=== PATIENT | female | born 1970 | race Caucasian/White ===

== ENCOUNTER 2019-09-14 07:40 | Outpatient (CLI) | payer OTHER, SELFPAY ==
--- NOTE | ~2019-09-14 | MM_ITS ---
EXAMINATION: MM screening [facility] BI w lisestte HISTORY: Screening mammogram TECHNIQUE: Craniocaudal and mediolateral oblique 3-D tomosynthesis images were obtained and synthetic 2-D images were generated. CAD analysis was submitted and interpreted. COMPARISON: Comparison to multiple prior studies sequentially, with oldest reviewed study dated 03/27. BREAST PARENCHYMAL COMPOSITION: There are scattered areas of fibroglandular density. FINDINGS: There is no evidence of suspicious mass, calcification, or architectural distortion to sugg est malignancy in either breast. There has been no suspicious interval change. IMPRESSION: 1. No mammographic evidence of malignancy. 2. Recommend routine screening mammography in one year. BI-RADS Category 1: Negative Reviewed, dictated and finalized at location A.
== END 2019-09-14 07:41 | disposition home or self-care (01) ==
LOC: ANHIMG 07:42
PROVIDERS: PCP Internal Medicine; Visit Provider Nurse Practitioner
DX: Z12.31 Encounter for screening mammogram for malignant neoplasm of breast (principal)
CPT/HCPCS: 77063; 77067

== ENCOUNTER 2019-12-20 18:14 | Emergency (ER) | payer OTHER, SELFPAY ==
--- NOTE | 2019-12-20 18:19 | ED.GENADULT ---
HPI - General Adult General Chief complaint: Wound/Laceration Stated complaint: left hand finger lac Time Seen by Provider: 12/20/19 18:19 Source: patient Mode of arrival: ambulatory Limitations: no limitations History of Present Illness HPI narrative: 49-year-old female patient presents to the [facility] with complaints of a laceration to the left ring finger while cutting a potato today. Patient states that she did sliced her finger with a kitchen knife. Patient unaware when her last tetanus shot was. Related Data Allergies Allergy/AdvReac Type Severity Reaction Status Date / Time Quinolones Allergy Severe RASH Verified 12/20/19 18:26 Sulfa (Sulfonamide Allergy Severe RASH Verified 12/20/19 18:26 Antibiotics) REACTION moxifloxacin Allergy Unknown Rash Verified 12/20/19 18:26 Penicillins Allergy Unknown RASH Verified 12/20/19 18:26 penicillin V Allergy Unknown Verified 12/20/19 18:26 rofecoxib AdvReac Unknown Hives Verified 12/20/19 18:26 clarithromycn Allergy Mild Dizziness Uncoded 05/20/19 16:52 Review of Systems Review of Systems: Narrative: CONSTITUTIONAL: Denies fever, chills, or sweats. EYES: Denies visual changes, redness, or discharge. ENT: Denies rhinorrhea, congestion, sore throat, or otalgia. CARDIOVASCULAR: Denies chest pain, palpitations, or edema. RESPIRATORY: Denies cough or dyspnea. GASTROINTESTINAL: Denies abdominal pain, nausea, vomiting, or diarrhea. GENITOURINARY: Denies dysuria or hematuria. SKIN: Denies rash or itching. Positive laceration to the left ring finger from knife MUSCULOSKELETAL: Denies back pain, joint pain, or myalgia. NEUROLOGIC: Denies headache, numbness, or weakness. PSYCHIATRIC: Denies anxiety or depression. [facility] Past Medical History Medical History Anxiety Fatty liver Hydradenitis Mild intermittent reactive airway disease Mixed hyperlipidemia Osteoarthritis Restless legs syndrome Family History Family History Father Hypertension Cerebrovascular accident Acute myocardial infarction Mother Family history of malignant neoplasm of breast in first degree relative Social History Social History Smoking status: Never smoker Alcohol intake: current Comments At the time of my signature I agree with nursing past medical history, surgical, social, and family history. There is no relevant family history pertinent to the presenting complaint. Exam Narrative: Exam Narrative: GENERAL: Well-appearing, well-nourished, and in no acute distress. HEAD: Normocephalic, atraumatic. EYES: PERRLA and EOMI. ENT: Nares clear, no rhinorrhea or epistaxis. Mucous membranes moist. NECK: Supple. No lymphadenopathy CHEST: Clear to auscultation. No respiratory distress. HEART: Regular rate and rhythm. No murmur heard. Normal peripheral pulses. ABDOMEN: Soft, nontender, nondistended, normal active bowel sounds. EXTREMITIES: Normal range of motion. No edema. SKIN: Warm, dry, no rash. Patient has approximately 1.5 cm linear laceration noted to the palm side of the distal left ring finger. There is a little bit of oozing blood noted during exam. Patient does have excellent range of motion, good cap refill and denies any numbness or tingling to the fingertip. NEURO: No focal deficits. Alert and oriented x3. Course Vital Signs Vital signs: Vital Signs Temperature 36.1 C L 12/20/19 18:20 Pulse Rate 92 12/20/19 18:20 Respiratory Rate 16 12/20/19 18:20 Blood Pressure 145/81 H 12/20/19 18:20 Pulse Oximetry 99 12/20/19 18:20 Temperature 36.1 C L 12/20/19 18:20 Pulse Rate 92 12/20/19 18:20 Respiratory Rate 16 12/20/19 18:20 Blood Pressure 145/81 H 12/20/19 18:20 Pulse Oximetry 99 12/20/19 18:20 Vital signs reviewed. The patient has been informed that they may have pre-hypertension or Hypertension
[2019-12-20 18:20] VITALS: BP 145/81; PULSE 92; RESP 16; TEMP 36.1; O2SAT 99
[2019-12-20] MEDS: TETANUS,DIPHTHERIA,AC PERTUSSIS ADULT (0.5 ML) BOOSTRIX IM (18:29)
== END 2019-12-20 19:00 | disposition home or self-care (01) ==
PROVIDERS: Emergency Provider Nurse Practitioner Family; PCP Internal Medicine
DX: S61.215A Laceration without foreign body of left ring finger without damage to nail, initial encounter (principal); W26.0XXA Contact with knife, initial encounter; Z23 Encounter for immunization; F41.9 Anxiety disorder, unspecified; K76.0 Fatty (change of) liver, not elsewhere classified; E78.2 Mixed hyperlipidemia; M19.90 Unspecified osteoarthritis, unspecified site; G25.81 Restless legs syndrome
CPT/HCPCS: 12001; 90471; 90715; 99212; G0463

== ENCOUNTER → 2020-03-07 09:58 | Outpatient (CLI) | payer OTHER, SELFPAY ==
--- NOTE | ~2020-03-07 | XR_ITS ---
EXAMINATION: XR knee LT 3V DATE: 03/07/2020 10:14 INDICATION: Left knee pain TECHNIQUE: Three views of the left knee were obtained. COMPARISON: 01/12/2011 FINDINGS: Alignment is normal. No fracture or osteochondral lesion. There is mild tricompartmental os teoarthritis characterized by tiny marginal osteophytes. No joint effusion/synovitis. Soft tissues a re unremarkable. IMPRESSION: 1. No acute osseous abnormality. Reviewed, dictated and finalized at location A. 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
== END ==
PROVIDERS: PCP Internal Medicine; Visit Provider Nurse Practitioner
DX: M25.562 Pain in left knee (principal)
CPT/HCPCS: 73562

== ENCOUNTER → 2020-10-15 09:06 | Outpatient (CLI) | payer OTHER, SELFPAY ==
--- NOTE | ~2020-10-15 | MM_ITS ---
EXAMINATION: MM screening [facility] BI w lissette HISTORY: Screening TECHNIQUE: Craniocaudal and mediolateral oblique 3-D tomosynthesis images were obtained and synthetic 2-D images were generated. CAD analysis was submitted and interpreted. COMPARISON: Comparison to multiple prior studies sequentially, with oldest reviewed study dated 09/02. BREAST PARENCHYMAL COMPOSITION: There are scattered areas of fibroglandular density. FINDINGS: There is no evidence of suspicious mass, calcification, or architectural distortion to sugg est malignancy in either breast. There has been no suspicious interval change. IMPRESSION: 1. No mammographic evidence of malignancy. 2. Recommend routine screening mammography in one year. BI-RADS Category 1: Negative Reviewed, dictated and finalized at location A.
== END ==
PROVIDERS: Visit Provider Nurse Practitioner
DX: Z12.31 Encounter for screening mammogram for malignant neoplasm of breast (principal)
CPT/HCPCS: 77063; 77067

== ENCOUNTER 2020-12-26 02:29 | Day surgery (SDC) | payer OTHER, SELFPAY ==
[2020-12-15 08:34] VITALS: BMI 35.7
[2020-12-26 11:59] VITALS: BP 127/70; PULSE 100; RESP 18; TEMP 35.9; O2SAT 96
[2020-12-26] MEDS: LACTATED RINGERS 1,000 ML 150 ML IV CONT (12:15)
--- NOTE | 2020-12-26 12:42 | WPDANESEPPF ---
Anes - Initial Pre Proc Eval Procedure: Operation Date: 12/26/20 13:00 Proposed Procedures p Colonoscopy - Song Alford MD Date/Time: 12/26/20 12:42 Surgeon: Song Alford MD Pre Op Diagnosis: positive cologuard Patient Data Age: 50 Gender: F Height: 1.57 m Weight: 85.8 kg Last Vital Signs Temp 35.9 C L 12/26/20 11:59 Pulse 100 12/26/20 11:59 Resp 18 12/26/20 11:59 BP 127/70 12/26/20 11:59 Pulse Ox 96 12/26/20 11:59 Allergies Allergy/AdvReac Type Severity Reaction Status Date / Time Quinolones Allergy Severe RASH Verified 12/26/20 11:56 Sulfa (Sulfonamide Allergy Severe RASH Verified 12/26/20 11:56 Antibiotics) REACTION moxifloxacin Allergy Unknown Rash Verified 12/26/20 11:56 Penicillins Allergy Unknown RASH Verified 12/26/20 11:56 penicillin V Allergy Unknown Verified 12/26/20 11:56 clarithromycin AdvReac Mild Dizziness Verified 12/26/20 11:56 rofecoxib AdvReac Unknown Hives Verified 12/26/20 11:56 Home Medications Medication Instructions Recorded Confirmed Type fluticasone propionate 50 1 spray INTRANASAL .prn #15.8 ml 03/16/20 12/26/20 Rx mcg/actuation nasal spray,suspension tizanidine 2 mg tablet See Rx Instructions .ROUTE 06/07/20 12/26/20 Rx .COMPLEX #90 tablet bupropion HCl 300 mg 24 hr tablet, See Rx Instructions .ROUTE 07/25/20 12/26/20 Rx extended release .COMPLEX #90 tablet escitalopram oxalate 20 mg tablet See Rx Instructions .ROUTE 07/25/20 12/26/20 Rx .COMPLEX #90 tablet rosuvastatin 20 mg tablet See Rx Instructions .ROUTE 07/25/20 12/26/20 Rx .COMPLEX #90 tablet diclofenac sodium 75 mg 75 mg PO DAILY #90 tablet 10/07/20 12/26/20 Rx tablet,delayed release alprazolam 0.25 mg tablet 0.25 mg PO DAILY PRN #90 tablet 11/11/20 12/26/20 Rx multivitamin 1 tablet PO DAILY 12/15/20 12/26/20 History omega 6-dqg-xmb-fish oil [Fish Oil] 1 cap PO DAILY 12/15/20 12/26/20 History Patient hx anesthesia problems: none Family hx anesthesia problems: none Results Review: All pre-operative results and documents have been reviewed as part of the pre-operative evaluation. [facility] Past Medical History Medical History Anxiety Fatty liver Hydradenitis Mild intermittent reactive airway disease Mixed hyperlipidemia Osteoarthritis Postmenopausal Restless legs syndrome Screening for breast cancer Screening for osteoporosis Family History Family History Father Hypertension Cerebrovascular accident Acute myocardial infarction Mother Family history of malignant neoplasm of breast in first degree relative Social History Social History Smoking status: Never smoker Alcohol intake: current Living arrangements: with family Spiritual care concerns: No Anes - Eval Final PreProcedure Day of Procedure 12/26/20 12:42 Patient weight: obese Heart: regular rate and rhythm Lungs: clear to auscultation Airway: Mallampati scale class II Neurological: alert and oriented Last oral intake: >/= 8 hours ASA classification: III Emergent: no Anesthetic plan: proceed Anesthesia type and monitoring: general GIVS and standard monitoring Results Review: All pre-operative results and documents have been reviewed as part of the pre-operative evaluation. Informed Consent: The patient's anesthetic plan and its attendant risks and benefits were discussed with the patient/family/POA. Questions were solicited and answers provided to the satisfaction of the patient/family/POA.
--- NOTE | 2020-12-26 13:27 | PM.HPGS ---
History of Present Illness History of Present Illness Consent: Risks, benefits, and alternatives have been discussed and questions answered. Patient agrees to proceed with procedure. Chief complaint: positive cologuard Narrative: Eva Payne is a 50 year old female here for first colonoscopy, + cologuard Review of Systems Constitutional: Constitutional: Denies headache(s) and Denies weakness Eyes: Eyes: Denies blurry vision ENT: Reports Normal hearing present, Denies headache(s) and Denies neck pain Cardiovascular: Cardiovascular: Denies chest pain and Denies dyspnea Respiratory: Respiratory: Denies dyspnea Gastrointestinal: Gastrointestinal: Reports no additional gastrointestinal complaints Genitourinary: Genitourinary: Denies dysuria Musculoskeletal: Musculoskeletal: Denies neck pain Integumentary/Breasts: Skin/Breast: Denies dry skin Neurologic: Reports Normal hearing present, Denies headache(s) and Denies weakness Psychiatric: Psychiatric: Denies anxiety Endocrine: Endocrine: Denies change in body appearance Hematologic/Lymphatic: Hematologic/Lymphatic: Denies easy bleeding Allergic/Immunologic: Allergic/Immunologic: Denies urticaria PMFSH Past Medical History Medical History (Updated 12/26/20 @ 13:27 by Song Alford MD) Anxiety Fatty liver Hydradenitis Mild intermittent reactive airway disease Mixed hyperlipidemia Osteoarthritis Positive colorectal cancer screening using Cologuard test Postmenopausal Restless legs syndrome Screening for breast cancer Screening for osteoporosis Family History Family History Father Hypertension Cerebrovascular accident Acute myocardial infarction Mother Family history of malignant neoplasm of breast in first degree relative Social History Social History Smoking status: Never smoker Alcohol intake: current Living arrangements: with family Spiritual care concerns: No Meds Home Medications and Allergies Home Medications Medication Instructions Recorded Confirmed Type fluticasone propionate 50 1 spray INTRANASAL .prn #15.8 ml 03/16/20 12/26/20 Rx mcg/actuation nasal spray,suspension tizanidine 2 mg tablet See Rx Instructions .ROUTE 06/07/20 12/26/20 Rx .COMPLEX #90 tablet bupropion HCl 300 mg 24 hr tablet, See Rx Instructions .ROUTE 07/25/20 12/26/20 Rx extended release .COMPLEX #90 tablet escitalopram oxalate 20 mg tablet See Rx Instructions .ROUTE 07/25/20 12/26/20 Rx .COMPLEX #90 tablet rosuvastatin 20 mg tablet See Rx Instructions .ROUTE 07/25/20 12/26/20 Rx .COMPLEX #90 tablet diclofenac sodium 75 mg 75 mg PO DAILY #90 tablet 10/07/20 12/26/20 Rx tablet,delayed release alprazolam 0.25 mg tablet 0.25 mg PO DAILY PRN #90 tablet 11/11/20 12/26/20 Rx multivitamin 1 tablet PO DAILY 12/15/20 12/26/20 History omega 1-pem-zgi-fish oil [Fish Oil] 1 cap PO DAILY 12/15/20 12/26/20 History Allergies Allergy/AdvReac Type Severity Reaction Status Date / Time Quinolones Allergy Severe RASH Verified 12/26/20 11:56 Sulfa (Sulfonamide Allergy Severe RASH Verified 12/26/20 11:56 Antibiotics) REACTION moxifloxacin Allergy Unknown Rash Verified 12/26/20 11:56 Penicillins Allergy Unknown RASH Verified 12/26/20 11:56 penicillin V Allergy Unknown Verified 12/26/20 11:56 clarithromycin AdvReac Mild Dizziness Verified 12/26/20 11:56 rofecoxib AdvReac Unknown Hives Verified 12/26/20 11:56 Vital Signs Vital Signs - 24 hr 12/26/20 11:59 Temperature 96.7 F L Pulse Rate 100 Respiratory Rate 18 Blood Pressure 127/70 Pulse Oximetry 96 Exam Const: General: comfortable and no acute distress HENMT: General nose exam: Normal nares present Eyes: General: appearance normal, both eyes and all related structures Neck: Neck: no JVD Resp: Auscultation: clear to auscultation bilaterally
[2020-12-26 13:50] VITALS: BP 84/67; PULSE 92; RESP 20; O2SAT 100
[2020-12-26 14:00] VITALS: BP 103/51; PULSE 78; RESP 16; O2SAT 100
[2020-12-26 14:10] VITALS: BP 114/60; PULSE 76; RESP 18; O2SAT 99
== END 2020-12-26 14:20 | disposition home or self-care (01) ==
PROVIDERS: PCP Internal Medicine; Visit Provider Internal Medicine Gastroenterology
PROC: 0DJD8ZZ Inspection of Lower Intestinal Tract, Via Natural or Artificial Opening Endoscopic (ICD-10-PCS; CPT 45378; principal; 2020-12-26 13:00)
DX: R19.5 Other fecal abnormalities (principal); K57.30 Diverticulosis of large intestine without perforation or abscess without bleeding; K64.8 Other hemorrhoids; F41.9 Anxiety disorder, unspecified; K76.0 Fatty (change of) liver, not elsewhere classified; L73.2 Hidradenitis suppurativa; E78.2 Mixed hyperlipidemia; Z78.0 Asymptomatic menopausal state; G25.81 Restless legs syndrome; E66.9 Obesity, unspecified; Z68.34 Body mass index [BMI] 34.0-34.9, adult; M19.90 Unspecified osteoarthritis, unspecified site
CPT/HCPCS: 45378; J2001; J2704; J7120

== ENCOUNTER 2021-06-13 16:50 | Outpatient (CLI) | payer OTHER, SELFPAY ==
--- NOTE | ~2021-06-13 | DEXA_ITS ---
Bone Density Report Name: LAVERN MEDRANO Age: 50 Sex: Female Ethnicity: White Date of : 1970 Indication: postmenopausal; Referring Provider: Nel Kimbrough Study: Bone densitometry was performed. Exam Date: June 13, 2021 Accession number: [id number] Bone Density: Region BMD T-score Z-score Classification AP Spine (L1-L4) 1.256 1.9 2.7 Normal Femoral Neck (Left) 0.897 0.4 1.2 Normal Total Hip (Left) 1.023 0.7 1.2 Normal Total Hip Bilateral Avg 1.010 0.6 1.0 Normal Femoral Neck (Right) 0.857 0.1 0.9 Normal Total Hip (Right) 0.996 0.4 0.9 Normal World Health Organization criteria for BMD impression classify patients as: Normal (T-score at or above -1.0), Osteopenia (T-score between -1.0 and -2.5), or Osteoporosis (T-score at or below -2.5). 10-year Fracture Risk: FRAX not reported because: All T-scores for Spine Total, Hip Total, Femoral Neck at or above -1.0 Clinical Information Provided by Patient: Has used the following medications: Vitamin D Patient maximum height was 62 Drinks caffeinated beverages Onset of menses at age 13 Number of children 2 Impression: The patient has normal bone mass. Discussion: BONE DENSITY IS ABOVE THE MINIMUM DESIRABLE LEVEL AT ALL SKELETAL SITES TESTED. This patient?s bone mineral density is above the minimum desirable level (T-score -1.0 or better) at all sites measured. The patient should follow a healthful lifestyle (good nutrition with adequate calcium and vitamin D, and appropriate weight-bearing exercise). Follow-Up: Consider repeating this study in 5 years or sooner if there is some new clinical indication. Reported by: [facility] on 06/13/2021 5:15:00 PM. Reviewed, dictated and finalized at location APat HODGE
== END 2021-06-13 16:51 | disposition home or self-care (01) ==
PROVIDERS: PCP Internal Medicine; Visit Provider Nurse Practitioner
DX: Z78.0 Asymptomatic menopausal state (principal); Z13.820 Encounter for screening for osteoporosis
CPT/HCPCS: 77080

== ENCOUNTER 2021-08-30 09:28 | Emergency (ER) | payer OTHER, SELFPAY ==
--- NOTE | ~2021-08-30 | XR_ITS ---
EXAMINATION: XR chest 2V DATE: 08/30/2021 10:48 INDICATION: Dizziness. TECHNIQUE: Frontal and lateral views of the chest were obtained. COMPARISON: Chest 2 views 12/14/2014 FINDINGS: The chest demonstrates clear lungs without pneumonia, pleural effusion, or pneumothorax. Th e heart size is normal. IMPRESSION: 1. No acute cardiopulmonary disease. Reviewed, dictated and finalized at location B.
--- NOTE | ~2021-08-30 | CT_ITS ---
EXAMINATION: CT brain wo con DATE: 08/30/2021 10:12 INDICATION: Dizziness. Disorientation. TECHNIQUE: Computed tomography (CT) of the head was performed without intravenous contrast. The mA wa s adjusted according to patient size. Iterative reconstruction technique was employed. The dose-lengt h product was 605.33 mGy-cm. COMPARISON: Head CT 12/13/2011 FINDINGS: There is no intracranial hemorrhage, acute infarction, or abnormal intracranial mass lesion . The ventricles are normal in size. The paranasal sinuses are clear. The orbits are normal. The mast oid air cells are normal. IMPRESSION: 1. Normal brain. Reviewed, dictated and finalized at location B. IMPRESSION: 1. Normal brain.
[2021-08-30 09:35] VITALS: BP 146/75; PULSE 87; RESP 18; TEMP 36.8; O2SAT 99
[2021-08-30 09:35] LABS: Glucose Point of Care 98 mg/dl (65-105)
--- NOTE | 2021-08-30 09:41 | ECG_ITS ---
Measurements Intervals [place] Rate: 78 P: 40 NE: 133 QRS: 66 QRSD: 93 T: 28 QT: 351 QTc: 401 Interpretive Statements SINUS RHYTHM NONSPECIFIC ST ABNORMALITY ABNORMAL ECG NO PREVIOUS ECG AVAILABLE FOR COMPARISON Electronically Signed On 08-30-2021 10:34:10 CDT by Lopez Morris M.D.
[2021-08-30 09:45] VITALS: BP 146/75; PULSE 83; RESP 17
[2021-08-30 10:01] LABS: Basophils Percent Auto 0.5 % (0.2-1.2); Eosinophils Absolute Auto 0.1 K/mm3 (0-0.3); Hematocrit 41.9 % (37.0-47.0); Hemoglobin 13.5 g/dL (12.0-15.0); Immature Granulocyte Absolute 0.01 K/mm3 (0.00-0.031); Immature Granulocyte Percent A 0.1 % (0-0.5); Lymphocytes Absolute Auto 1.67 K/mm3 (0.9-3.2); Lymphocytes Percent Auto 21.5 % (18.3-44.2); Mean Corpuscular HGB Conc 32.2 g/dl (32-36); Mean Corpuscular Hemoglobin 30.1 pg (26-34); Mean Corpuscular Volume 93.5 fl (80-100); Mean Platelet Volume 8.9 fl (7.4-10.4); Monocytes Absolute Auto 0.6 K/mm3 (0.1-0.6); Monocytes Percent Auto 7.2 % (2.6-8.5); Neutrophils Absolute Auto 5.4 K/mm3 (1.3-6.7); Neutrophils Percent Auto 69.7 % (45.5-73.1); Platelet Count Result 335 k/mm3 (150-375); Red Blood Count 4.48 M/mm3 (4.2-5.4); Red Cell Distribution Width 13.4 % (11.5-14.5); White Blood Count 7.8 K/mm3 (4.5-10.0)
--- NOTE | 2021-08-30 10:13 | ED.NEUROSD ---
HPI - Neuro Symptoms/Deficit General Chief Complaint: Suspected CVA Stated Complaint: dizzy, near syncope Time Seen by Provider: 08/30/21 09:49 Source: patient History of Present Illness HPI Narrative: Patient presents with dizziness. Patient reports today while at work she had a out of body experience . It is associated with her knees buckling as well as paresthesias to her left arm. She also reports she put her keys in her looks box and seemed confused as she could not find the light switch. Episode lasted several minutes and then resolved without intervention. Patient reports a history of this where she is previously been evaluated at [facility] is followed up with primary care doctor. Ports were present been negative thus far and she has follow-up with her primary care doctor in 2 weeks discuss further evaluation of her symptoms. Today's episode was more severe than prior so she came the ER for further evaluation. Patient now feels recovered. She denies any chest pain shortness of breath nausea vomiting or diarrhea. She denies any current lightheadedness or dizziness she denies any headache changes in vision or focal numbness or weakness currently. Related Data Home Medications Medication Instructions Recorded Confirmed multivitamin 1 tablet PO DAILY 12/15/20 03/06/21 omega 6-ixz-vpd-fish oil 1,000 mg 1 cap PO DAILY 12/15/20 03/06/21 (120 mg-180 mg) capsule (Fish Oil) cholecalciferol (vitamin D3) 50 50 mcg PO DAILY 04/10/21 mcg (2,000 unit) capsule Allergies Allergy/AdvReac Type Severity Reaction Status Date / Time Quinolones Allergy Severe RASH Verified 08/30/21 09:42 Sulfa (Sulfonamide Allergy Severe RASH Verified 08/30/21 09:42 Antibiotics) REACTION moxifloxacin Allergy Unknown Rash Verified 08/30/21 09:42 Penicillins Allergy Unknown RASH Verified 08/30/21 09:42 penicillin V Allergy Unknown Verified 08/30/21 09:42 clarithromycin AdvReac Mild Dizziness Verified 08/30/21 09:42 rofecoxib AdvReac Unknown Hives Verified 08/30/21 09:42 Review of Systems Review of Systems: CONSTITUTIONAL: Denies fever, chills, or sweats. EYES: Denies visual changes, redness, or discharge. ENT: Denies rhinorrhea, congestion, sore throat, or otalgia. CARDIOVASCULAR: Denies chest pain, palpitations, or edema. RESPIRATORY: Denies cough or dyspnea. GASTROINTESTINAL: Denies abdominal pain, nausea, vomiting, or diarrhea. GENITOURINARY: Denies dysuria or hematuria. SKIN: Denies rash or itching. MUSCULOSKELETAL: Denies back pain, joint pain, or myalgia. NEUROLOGIC: Denies headache, or weakness. PSYCHIATRIC: Denies anxiety or depression. All systems reviewed & are unremarkable except as noted in HPI and below PMFSH Past Medical History Medical History Anxiety Fatty liver Hydradenitis Mild intermittent reactive airway disease Mixed hyperlipidemia Osteoarthritis Positive colorectal cancer screening using Cologuard test Postmenopausal Restless legs syndrome Screening for breast cancer Screening for osteoporosis Family History Family History Father Hypertension Cerebrovascular accident Acute myocardial infarction Mother Family history of malignant neoplasm of breast in first degree relative Social History Social History Smoking status: Never smoker Second hand tobacco smoke exposure: No Alcohol intake: current Substance use: never Substance use type: does not use Spiritual care concerns: No Exam Narrative: GENERAL: Well-appearing, well-nourished, and in no acute distress. HEAD: Normocephalic, atraumatic. EYES: PERRLA and EOMI. ENT: Nares clear, no rhinorrhea or epistaxis. Mucous membranes moist. NECK: Supple. No masses. No JVD CHEST: Clear to auscultation. No respiratory distress. No wheezes rales or rhonchi HEART: Regular rate and
[2021-08-30 10:15] LABS: Alanine Aminotransferase 24 U/L (6-35); Albumin Level 4.6 g/dL (3.5-5.1); Alkaline Phosphatase 30 U/L (38-126); Anion Gap 7 mmol/L (8-16); Aspartate Amino Transferase 37 U/L (14-36); Bilirubin,Total 0.4 mg/dL (0.2-1.3); Blood Urea Nitrogen 14 mg/dL (7-17); Calcium 9.2 mg/dL (8.4-10.2); Carbon Dioxide 27 mmol/L (22-30); Chloride 105 mmol/L (98-107); Estimated Glomerular Filt Rate > 60; Glucose 89 mg/dL (65-110); Potassium 4.3 mmol/L (3.4-5.0); Prothrombin Time 12.5 Seconds (11.1-14.7); Sodium 139 mmol/L (137-145)
[2021-08-30 10:16] LABS: Partial Thromboplastin Time 27.5 SECONDS (22.3-36.8)
[2021-08-30 10:20] VITALS: BP 135/71; PULSE 79; RESP 15; O2SAT 95
[2021-08-30 10:32] LABS: Troponin I < 0.012 ng/mL (0.000-0.034)
[2021-08-30 11:43] VITALS: BP 128/74; PULSE 85; RESP 16; O2SAT 99
== END 2021-08-30 11:44 | disposition home or self-care (01) ==
PROVIDERS: Emergency Provider Emergency Medicine; PCP Internal Medicine
DX: R41.82 Altered mental status, unspecified (principal); R42 Dizziness and giddiness; F41.9 Anxiety disorder, unspecified; E78.5 Hyperlipidemia, unspecified; M19.90 Unspecified osteoarthritis, unspecified site
CPT/HCPCS: 36415; 70450; 71046; 80053; 82948; 84484; 85025; 85610; 85730; 93005; 99284

== ENCOUNTER 2021-10-17 08:28 | Outpatient (CLI) | payer OTHER, SELFPAY ==
--- NOTE | 2021-10-17 08:32 | EST_ITS ---
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 Summary 1. 1. Negative Juan Manuel exercise stress test for ischemic ST changes by ECG criteria. 2. 2. Good functional capacity, achieving 10 METs of workload. 3. 3. Hypertensive response to exercise. 4. 4. Appropriate HR response to exercise. 5. 5. Appropriate HR recovery at 1 minute post exercise. 6. 6. Negative stress echocardiogram for ischemia by wall motion analysis. 7. 7. Patient informed of the above results. Stress Echo Findings Left Ventricle Appropriate increase in LV endocardial thickening with systole. Appropriate augmentation of contractility with systole. No wall motion abnormality. Left Ventricle Normal LV systolic function, no wall motion abnormality. Protocol: Juan Manuel Stress ECG Details Stage: REST Duration (min): 1 min : 6 sec Speed (mph): 0.0 Grade (%): 0 HR (bpm): 78 SBP (mmHg): 131 DBP (mmHg): 73 METS: --- Stage: REST Duration (min): 11 min : 27 sec Speed (mph): 0.0 Grade (%): 0 HR (bpm): 89 SBP (mmHg): 131 DBP (mmHg): 73 METS: --- Stage: STAGE 1 Duration (min): 1 min : 0 sec Speed (mph): 1.7 Grade (%): 10 HR (bpm): 114 SBP (mmHg): 131 DBP (mmHg): 73 METS: --- Stage: STAGE 1 Duration (min): 2 min : 0 sec Speed (mph): 1.7 Grade (%): 10 HR (bpm): 125 SBP (mmHg): 131 DBP (mmHg): 73 METS: --- Stage: STAGE 1 Duration (min): 3 min : 0 sec Speed (mph): 1.7 Grade (%): 10 HR (bpm): 133 SBP (mmHg): 186 DBP (mmHg): 81 METS: --- Stage: STAGE 2 Duration (min): 1 min : 0 sec Speed (mph): 2.5 Grade (%): 12 HR (bpm): 138 SBP (mmHg): 186 DBP (mmHg): 81 METS: --- Stage: STAGE 2 Duration (min): 2 min : 0 sec Speed (mph): 2.5 Grade (%): 12 HR (bpm): 143 SBP (mmHg): 223 DBP (mmHg): 70 METS: --- Stage: STAGE 2 Duration (min): 3 min : 0 sec Speed (mph): 2.5 Grade (%): 12 HR (bpm): 148 SBP (mmHg): 223 DBP (mmHg): 70 METS: --- Stage: STAGE 3 Duration (min): 1 min : 0 sec Speed (mph): 3.4 Grade (%): 14 HR (bpm): 156 SBP (mmHg): 223 DBP (mmHg): 70 METS: --- Stage: STAGE 3 Duration (min): 2 min : 0 sec Speed (mph): 3.4 Grade (%): 14 HR (bpm): 159 SBP (mmHg): 130 DBP (mmHg): 47 METS: --- Stage: STAGE 3
--- NOTE | 2021-10-20 15:44 | P.PCNHOL_ITS ---
Holter/Event Monitor Holter/Event Monitor Date of procedure: 10/20/21 Holter/Event Procedure: 48 Hr Holter Monitor Diagnosis: Syncope and collapse Indications: Syncope and collapse Image/Tracing Quality: Acceptable Finding: Underlying rhythm is sinus with an average heart rate of 80 beats per minute minimum 57 beats per minute occurring at 4:36 a.m. and maximum 160 beats per minute occurring 12:47 p.m.. Rare ventricular ectopy with 4 ventricular couplets and 8 isolated premature ventricular contractions. Rare s upraventricular ectopy with a total 27 isolated premature atrial contractions and 4 atrial pairs. No atrial fibrillation, atrial flutter, prolonged pauses or high-grade AV blocks. Six patient's symptom diary entries returned in conjunction with the study. At 6:43 p.m. patient complained of tingling fingers in heartbeat in her ears were of standing up associated with sinus tachycardia heart rate 103 beats per minute without ectopy. At 7:46 p.m. patient made a fluttering while watching television social was sinus rhythm heart rate 80 beats per minute without ectopy. At 6:35 a.m. patient complained of tingling in her arms while riding exercise bike associated sinus tachycardia heart rate 119 beats per minute without ectopy. At 9:24 p.m. patient complained of mild chest pain while working at her desk associated with sinus tachycardia heart rate 101 beats per minute without ectopy. At 9:38 p.m. patient complained of chest pain while lying in bed so she was sinus rhythm heart rate 75 beats per minute without ectopy. At 7:20 a.m. patient complained of episode of arms tingling, dizziness head felt funny slight knee buckling while walking into work associated with sinus rhythm heart rate 75 beats per minute without ectopy. Conclusion: Underlying normal sinus rhythm with rare PVCs and rare PACs no prolonged pauses or high-grade AV blocks. Symptoms correspond to sinus rhythm and sinus tachycardia without ectopy. Clinical correlation advised.
== END 2021-10-17 08:29 | disposition home or self-care (01) ==
PROVIDERS: PCP Internal Medicine; Visit Provider Nurse Practitioner
DX: R07.9 Chest pain, unspecified (principal); R55 Syncope and collapse
CPT/HCPCS: 93225; 93226; 93351

== ENCOUNTER → 2021-10-19 12:52 | Outpatient (CLI) | payer OTHER, SELFPAY ==
--- NOTE | ~2021-10-19 | MR_ITS ---
EXAMINATION: MR brain/brain stem wo/w con DATE: 10/19/2021 13:30 INDICATION: Transient cerebral ischemic attack, unspecified. TECHNIQUE: Magnetic resonance imaging (MRI) of the brain and brainstem was performed without and with 18 mL MultiHance intravenous contrast. COMPARISON: Head CT 08/30/2021 FINDINGS: There is a small focus of increased T2-weighted signal intensity in the right parietal lobe deep white matter, which is normal as an isolated finding. There is no intracranial hemorrhage, acut e infarction, or abnormal intracranial mass lesion. The ventricles are normal in size. The paranasal sinuses are clear. The orbits are normal. The mastoid air cells are normal. IMPRESSION: 1. Normal brain. Reviewed, dictated and finalized at location A. IMPRESSION: 1. Normal brain.
== END ==
PROVIDERS: PCP Internal Medicine; Visit Provider Internal Medicine
DX: G45.9 Transient cerebral ischemic attack, unspecified (principal)
CPT/HCPCS: 70553; A9577

== ENCOUNTER 2022-10-08 12:09 | Outpatient (CLI) | payer OTHER, SELFPAY ==
--- NOTE | ~2022-10-08 | XR_ITS ---
Cervical Spine: AP, lateral, open-mouth views Clinical History: Pain Findings: There is reversal of the normal cervical lordosis. The vertebral bodies and posterior [place] ents appear intact. There is mild degenerative disc narrowing at C5-C6 and C6-C7. Pre-vertebral soft tissues are unremarkable. Impression: Reversal of the normal cervical lordosis with mild degenerative disc change at C5-C6 and C6-C7. Reviewed, dictated and finalized at location . Impression: Reversal of the normal cervical lordosis with mild degenerative disc change at C5-C6 and C6-C7.
== END 2022-10-08 12:10 | disposition home or self-care (01) ==
PROVIDERS: PCP Nurse Practitioner Family; Visit Provider Nurse Practitioner Family
DX: M54.2 Cervicalgia (principal)
CPT/HCPCS: 72040

== ENCOUNTER → 2022-10-11 13:32 | Outpatient (CLI) | payer OTHER, SELFPAY ==
--- NOTE | ~2022-10-11 | MR_ITS ---
EXAMINATION: MR brain/brain stem wo/w con DATE: 10/11/2022 14:10 INDICATION: Transient cerebral ischemic attack. Anesthesia of skin . TECHNIQUE: Magnetic resonance imaging (MRI) of the brain and brainstem was performed without and with 18 mL Multihance intravenous contrast. Sequences included sagittal and axial T1-weighted SE, axial d iffusion-weighted FS SE, axial 3D SWAN, axial T2-weighted FLAIR, and axial T2-weighted FSE. Postcontr ast axial and coronal T1-weighted SE was obtained. Apparent diffusion coefficient (ADC) maps were cre ated. COMPARISON: 10/19/2021 FINDINGS: There are no areas of restricted diffusion to suggest acute infarction. No intracranial hemorrhage or abnormal intracranial mass lesion. There are no intraparenchymal signal abnormalities seen on the ot her pulse sequences. The ventricles are symmetric and normal in size. There are no abnormal extra-axi al fluid collections. Flow voids are seen in the cerebral arteries on the T2-weighted sequences consi stent with their expected patency. Mild mucoperiosteal thickening the bilateral ethmoid sinuses. Visu alized orbits and soft tissues are unremarkable. There are no areas of abnormal enhancement on the po st contrast images. IMPRESSION: 1. Normal brain. Reviewed, dictated and finalized at location A. IMPRESSION: 1. Normal brain.
== END ==
PROVIDERS: PCP Nurse Practitioner Family; Visit Provider Nurse Practitioner Family
DX: R20.0 Anesthesia of skin (principal)
CPT/HCPCS: 70553; A9577

== ENCOUNTER 2022-12-26 08:32 | Outpatient (CLI) | payer OTHER, SELFPAY ==
--- NOTE | ~2022-12-26 | MR_ITS ---
MRA HEAD History: Left V3 numbness Technique: 3D time of flight MRA of the head is performed. Findings: The right and left distal vertebral arteries and the basilar and posterior cerebral arterie s are normal. Right and left distal internal carotid arteries and anterior and middle cerebral arteri es are normal. There is no aneurysm, stenosis, or occlusion. Impression: No occlusion, stenosis, or aneurysm. Reviewed, dictated and finalized at location . Impression: No occlusion, stenosis, or aneurysm.
--- NOTE | ~2022-12-26 | MR_ITS ---
MRI of the brain Clinical History: Numbness, trigeminal neuralgia Technique: Axial and sagittal T1-weighted images were acquired. These were followed by axial T2-weigh aimee, diffusion weighted, gradient, and FLAIR images. Coronal thin cut T1-weighted and T2-weighted mallory ges, and axial thin cut T1-weighted images were performed through the brainstem. Following intravenou s administration of 19 cc MultiHance gadolinium, T1-weighted fat-sat imaging was performed through th e brain in the axial and coronal planes. Thin cut T1 postcontrast images were performed through the b rain seen in the axial and coronal planes. COMPARISON: 10/11/2022 Findings: There is no abnormal signal in the brain parenchyma. No acute infarct, intracranial hemorrh age or mass lesion. Ventricles and subarachnoid spaces are unremarkable. Orbits are unremarkable. Paranasal sinuses and m astoid air cells are clear. Major intracranial flow voids are intact. Sagittal midline structures are intact. Trigeminal nerves are unremarkable. Meckel's cave unremarkable bilaterally. No abnormal postcontrast enhancement. IMPRESSION: Unremarkable exam. Reviewed, dictated and finalized at location M. IMPRESSION: Unremarkable exam.
== END 2022-12-26 08:33 | disposition home or self-care (01) ==
PROVIDERS: PCP Nurse Practitioner Family; Visit Provider Student in an Organized Health Care Education/Training Program
DX: R20.0 Anesthesia of skin (principal)
CPT/HCPCS: 70544; 70553; A9577

== ENCOUNTER 2023-01-16 15:20 | Outpatient (CLI) | payer OTHER, SELFPAY ==
[2023-01-16 15:32] LABS: Basophils Absolute Auto 0.1 K/mm3 (0.0-0.1); Basophils Percent Auto 0.6 % (0.2-1.2); Eosinophils Absolute Auto 0.1 K/mm3 (0-0.3); Eosinophils Percent Auto 1.5 % (0-4.4); Hematocrit 38.8 % (37.0-47.0); Immature Granulocyte Absolute 0.02 K/mm3 (0.00-0.031); Immature Granulocyte Percent A 0.3 % (0-0.5); Lymphocytes Absolute Auto 2.77 K/mm3 (0.9-3.2); Lymphocytes Percent Auto 35.5 % (18.3-44.2); Mean Corpuscular HGB Conc 33.5 g/dl (32-36); Mean Corpuscular Volume 89.6 fl (80-100); Mean Platelet Volume 8.8 fl (7.4-10.4); Monocytes Absolute Auto 0.6 K/mm3 (0.1-0.6); Monocytes Percent Auto 7.3 % (2.6-8.5); Neutrophils Absolute Auto 4.3 K/mm3 (1.3-6.7); Neutrophils Percent Auto 54.8 % (45.5-73.1); Platelet Count Result 314 k/mm3 (150-375); Red Blood Count 4.33 M/mm3 (4.2-5.4); Red Cell Distribution Width 12.8 % (11.5-14.5); White Blood Count 7.8 K/mm3 (4.5-10.0)
[2023-01-16 17:08] LABS: Alanine Aminotransferase 33 U/L (6-35); Albumin Level 4.2 g/dL (3.5-5.1); Alkaline Phosphatase 30 U/L (38-126); Anion Gap 5 mmol/L (8-16); Aspartate Amino Transferase 26 U/L (14-36); Bilirubin,Total 0.4 mg/dL (0.2-1.3); Blood Urea Nitrogen 18 mg/dL (7-17); Calcium 9.6 mg/dL (8.4-10.2); Carbon Dioxide 29 mmol/L (22-30); Chloride 104 mmol/L (98-107); Estimated Glomerular Filt Rate > 60; Glucose 114 mg/dL (65-110); Potassium 3.9 mmol/L (3.4-5.0); Sodium 138 mmol/L (137-145)
[2023-01-19 00:46] LABS: Kappa\\Lambda Light Chains 1.39 (0.26-1.65); Lambda Light Chain 14.2 mg/L (5.7-26.3)
[2023-01-19 10:32] LABS: Albumin 3.9 g/dL (3.8-4.8); Alpha 1 Globulin 0.3 g/dL (0.2-0.3); Alpha 2 Globulin 0.8 g/dL (0.5-0.9); Beta 1 Globulin 0.4 g/dL (0.4-0.6); Protein, Total 6.7 g/dL (6.1-8.1)
== END 2023-01-16 15:21 | disposition home or self-care (01) ==
PROVIDERS: PCP Nurse Practitioner Family; Visit Provider Internal Medicine Hematology & Oncology
DX: D47.2 Monoclonal gammopathy (principal)
CPT/HCPCS: 36415; 80053; 83883; 84155; 84165; 85025

== ENCOUNTER 2023-01-21 15:00 | Outpatient (CLI) | payer OTHER, SELFPAY ==
[2023-01-21 17:20] LABS: Immunoglobulin A 179 mg/dL (70-400); Immunoglobulin G 984 mg/dL (700-1600); Immunoglobulin M 152 mg/dL (40-230)
== END 2023-01-21 15:01 | disposition home or self-care (01) ==
LOC: ANHLAB 15:02
PROVIDERS: PCP Nurse Practitioner Family; Visit Provider Internal Medicine Hematology & Oncology
DX: D47.2 Monoclonal gammopathy (principal)
CPT/HCPCS: 36415; 82784

== ENCOUNTER 2023-07-28 09:56 | Emergency (ER) | payer OTHER, SELFPAY ==
[2023-07-28 10:08] VITALS: BP 159/99; PULSE 87; RESP 18; TEMP 36.2; O2SAT 99
--- NOTE | 2023-07-28 10:09 | ED.GENADULT ---
HPI - General Adult General Chief complaint: Skin/Abscess/Foreign Body Stated complaint: poison Rachel Time Seen by Provider: 07/28/23 10:09 Source: patient, RN notes reviewed and old records reviewed Mode of arrival: ambulatory Limitations: no limitations History of Present Illness HPI narrative: 53-year-old female to [facility] for complaint diffuse rash to bilateral upper and bilateral lower extremities for 4 days. Patient has attempted to treat at home with Benadryl and calamine lotion with little to no relief. Patient endorses potential exposure to poison sumac. Patient denies pertinent medical history. Patient denies cough, shortness of breath, rash on face, oral swelling. Patient clearly uncomfortable an exam room. Patient hypertensive upon arrival. Patient in no acute distress. Respirations even and nonlabored. Related Data Home Medications Medication Instructions Recorded Confirmed multivitamin 1 tablet PO DAILY 12/15/20 04/02/23 omega 5-evx-nss-fish oil 1,000 mg 1 cap PO DAILY 12/15/20 04/02/23 (120 mg-180 mg) capsule (Fish Oil) bupropion HCl 300 mg 24 hr tablet, 300 mg PO QAM 04/02/23 04/02/23 extended release (Wellbutrin XL) buspirone 5 mg tablet 5 mg PO BID 04/02/23 04/02/23 hydroxyzine HCl 25 mg tablet 12.5 mg PO QHS PRN 07/09/23 Allergies Allergy/AdvReac Type Severity Reaction Status Date / Time Quinolones Allergy Severe RASH Verified 07/28/23 10:01 Sulfa (Sulfonamide Allergy Severe RASH Verified 07/28/23 10:01 Antibiotics) REACTION moxifloxacin Allergy Unknown Rash Verified 07/28/23 10:01 Penicillins Allergy Unknown RASH Verified 07/28/23 10:01 penicillin V Allergy Unknown Verified 07/28/23 10:01 clarithromycin AdvReac Mild Dizziness Verified 07/28/23 10:01 rofecoxib AdvReac Unknown Hives Verified 07/28/23 10:01 Review of Systems Review of Systems: All systems reviewed & are unremarkable except as noted in HPI and below Constitutional: Constitutional: Reports no additional constitutional complaints Eyes: Eyes: Reports no additional eye complaints ENT: Reports system reviewed and no additional complaints, except as documented Cardiovascular: Cardiovascular: Reports no additional cardiovascular complaints, Denies chest pain and Denies dyspnea Respiratory: Respiratory: Reports no additional respiratory complaints, Denies cough and Denies dyspnea Musculoskeletal: Musculoskeletal: Reports no additional musculoskeletal complaints Integumentary/Breasts: Skin/Breast: Reports pruritus and Reports rash Neurologic: Reports system reviewed and no additional complaints, except as documented Psychiatric: Psychiatric: Reports no additional psychiatric complaints PMFSH Past Medical History Medical History Anxiety Fatty liver Hydradenitis Major depressive disorder Mild intermittent reactive airway disease Mixed hyperlipidemia Multilevel scoliosis Osteoarthritis Positive colorectal cancer screening using Cologuard test Postmenopausal Restless legs syndrome Screening for breast cancer Screening for osteoporosis Family History Family History Father Hypertension Cerebrovascular accident Acute myocardial infarction Mother Family history of malignant neoplasm of breast in first degree relative Social History Social History (Updated 07/09/23 @ 14:31 by BETO Pablo) Smoking status: Never smoker Second hand tobacco smoke exposure: No Alcohol intake: current Drinks per week: 2 Substance use: current Substance use type: marijuana Other substance usage details: Cannabis gummies occasionally Do You Feel Safe in your Home?: Yes Lack of Transportation: No Lack of Food: Never True Current Housing: I Have Housing Concerned About Future Housing: No Difficulty Paying Gas/Electric Bills: No Difficulty Paying for Meds: No Currently Unemployed:
== END 2023-07-28 10:44 | disposition home or self-care (01) ==
PROVIDERS: Emergency Provider Nurse Practitioner Family
DX: L25.9 Unspecified contact dermatitis, unspecified cause (principal); K76.0 Fatty (change of) liver, not elsewhere classified; E78.2 Mixed hyperlipidemia; M19.90 Unspecified osteoarthritis, unspecified site; G25.81 Restless legs syndrome; F41.9 Anxiety disorder, unspecified
CPT/HCPCS: 99213; G0463

== ENCOUNTER 2024-08-24 08:04 | Emergency (ER) | payer OTHER, SELFPAY ==
--- OUTSIDE RECORDS SUMMARY | 2024-08-24 08:09 | XMS_ITS | Encounter Summary ---
Author Organization [facility] Address [address] [place] [address] Phone Care Team Providers Care Loading Checker Name Role Phone Marv Becerril DO Primary Care Provider [phone] Referral, Self Unavailable Unavailable Patricio Ayers MD Unavailable [phone] Encounter Details Date Type Department Care Team (Latest Contact Info) Description 07/09/2023 Orders Only [facility] Scanning, Provider Social History Tobacco Use Types Packs/Day Years Used Date Smoking Tobacco: Never Smokeless Tobacco: Never Comments No Sex and Gender Information Value Date Recorded Sex Assigned at Not on file Legal Sex Female 3:49 AM EDGE BRUSHER Gender Identity Not on file Sexual Orientation Not on file documented as of this encounter Plan of Treatment Not on file documented as of this encounter Procedures Procedure Name Priority Date/Time Associated Diagnosis Comments SCAN - LABS 07/09/2023 documented in this encounter Results * SCAN - LABS (07/09/2023) us Provider Scanning Final Result documented in this encounter Visit Diagnoses Not on filedocumented in this encounter Care Teams Loading Checker Relationship Specialty Start Date End Date Marv Becerril DO PCP - General 08/24/20 Referral, Self 02/01/23 Patricio Ayers MD [address] [facility] [address] DIV IM [place] [address] Consulting Physician Internal Medicine 02/01/23 documented as of this encounter
--- OUTSIDE RECORDS SUMMARY | 2024-08-24 08:09 | XMS_ITS | Referral Summary ---
Author Organization [facility] Address [address] [place] [address] Care Team Providers Care Hull Molder Name Role Phone Marv Becerril Primary Care Provider [phone] Referral, Self Unavailable Unavailable Patricio Ayers MD Unavailable [phone] Allergies Active Allergy Reactions Criticality Noted Date Comments Moxifloxacin Other (See comments) Low 01/16/2023 Penicillins Sulfa (Sulfonamide Antibiotics) Rash Medium 03/2022 Medications rosuvastatin (CRESTOR) 20 mg tablet Take 1 tablet (20 mg total) by mouth daily Active ALPRAZolam (XANAX) 0.25 mg tablet Take 1 tablet (0.25 mg total) by mouth nightly as needed for anxiety Active diclofenac DR (VOLTAREN) 75 mg EC tablet Take 1 tablet (75 mg total) by mouth 2 (two) times a day Active fish oil-dha-epa 1,200-144-216 mg capsule Take by mouth Active TiZANidine (ZANAFLEX) 2 mg capsule Take 1 capsule (2 mg total) by mouth 3 (three) times a day Active DOCOSAHEXAENOIC ACID ORALIndications :MGUS (monoclonal gammopathy of unknown significance) Take by mouth Active busPIRone (BUSPAR) 5 mg tabletIndicatio ns:MGUS (monoclonal gammopathy of unknown significance) Take 1 tablet (5 mg total) by mouth 3 (three) times a day Active omeprazole (PriLOSEC) 20 mg capsuleIndicati ons:MGUS (monoclonal gammopathy of unknown significance) 12/19/2022 Activ e buPROPion XL (WELLBUTRIN XL) 300 mg 24 hr tabletIndicatio ns:MGUS (monoclonal gammopathy of unknown significance) 12/28/2022 Activ e hydrOXYzine (ATARAX) 25 mg tablet 12/05/2023 Active busPIRone (BUSPAR) 10 mg tablet 1 tablet (10 mg total) 01/26/2024 Active TiZANidine (ZANAFLEX) 4 mg capsule 1 capsule (4 mg total) 01/27/2024 Active Active Problems Problem Noted Date Diagnosed Date MGUS (monoclonal gammopathy of unknown significa nce) 02/20/2023 Breast cancer screening, high risk patient 12/14 Pain in forearm 11/29/2014 Overview (06/22/2016): Pain in forearm Elbow pain 11/29/2014 Overview (06/22/2016): Elbow pain Immunizations Immunization Administration Dates Next Due Influenza, Quadrivalent, Spl it, Preservative Free, Intramuscular 12/15/2014 Moderna SARS-CoV-2 Monovalent Vaccination (12+ Y RS) 04/26/2020,03/29/2020 Social History Tobacco Use Types Packs/Day Years Used Date Smoking Tobacco: Never Smokeless Tobacco: Never Tobacco Cessation:Counseling Given: Not Answered Comments No Sex and Gender Information Value Date Recorded Sex Assigned at Not on file Legal Sex Female 3:49 AM LINE O SCRIBE OPERATOR Gender Identity Not on file Sexual Orientation Not on file Last Filed Vital Signs Vital Sign Reading Time Taken Comments Blood Pressure 120/84 03/06/2024 8:16 AM LINE O SCRIBE OPERATOR Pulse 79 03/06/2024 8:16 AM LINE O SCRIBE OPERATOR Temperature 37.1 C (98.7 F) 03/06/2024 8:16 AM LINE O SCRIBE OPERATOR Respiratory Rate 18 03/06/2024 8:16 AM LINE O SCRIBE OPERATOR Oxygen Saturation 99% 03/06/2024 8:16 AM LINE O SCRIBE OPERATOR Inhaled Oxygen Concentration - - Weight 78.9 kg (174 lb) 03/09/2024 8:29 AM LINE O SCRIBE OPERATOR Height 157.5 cm (5' 2) 03/09/2024 8:29 AM LINE O SCRIBE OPERATOR Body Mass Index 31.83 03/09/2024 8:29 AM LINE O SCRIBE OPERATOR Plan of Treatment Not on file Procedures Procedure Name Priority Date/Time Associated Diagnosis Comments SCREENING MAMMOGRAM BILATERAL W KD Schedule Routine, Read Routine (OP Routine) 03/09/2024 9:08 AM LINE O SCRIBE OPERATOR Breast cancer screening, high risk patient from Last 3 Months or Most Recently Relevant to Health Maintenance Results * Screening Mammogram Bilateral W Kd (03/09/2024 9:08 AM LINE O SCRIBE OPERATOR) Anatomical Region Laterality Modality Breast Bilateral Mammography Narrative 03/09/2024 6:00 PM LINE O SCRIBE OPERATOR Mammogram Technique: Bilateral Digital Breast Tomosynthesis, Bilateral C-view 2D Screening mammogram. Views obtained: bilateral craniocaudal and bilateral mediolateral oblique. Computer Aided Detection was performed. Mammogram Findings: The present examination has been compared to prior imaging studies performed at [facility] on 03/01/2022 and 03/06/2023. The breasts are almost entirely fatty. There is no suspicious abnormality in either breast. There are no significant changes from the prior study. Impression: There is no mammographic evidence of malignancy. Annual screening mammography is recommended. OVERALL FINAL ASSESSMENT: BI-RADS CATEGORY 1: Negative. Procedure Note Shala Gagnon MD - 03/09/2024 Mammogram Technique: Bilateral Digital Breast Tomosynthesis, Bilateral C-view 2D Screening mammogram. Views obtained: bilateral craniocaudal and bilateral mediolateral oblique. Computer Aided Detection was performed. Mammogram Findings: The present examination has been compared to prior imaging studies performed at [facility] on 03/01/2022 and 03/06/2023. The breasts are almost entirely fatty. There is no suspicious abnormality in either breast. There are no significant changes from the prior study. Impression: There is no mammographic evidence of malignancy. Annual screening mammography is recommended. OVERALL FINAL ASSESSMENT: BI-RADS CATEGORY 1: Negative. Bianca Rossi NP IMG MAMMO PROCEDURES Final Result from Last 3 Months or Most Recently Relevant to Health Maintenance Insurance [facility] Address: [address] [address] [place] [address] [facility] Address: [address] [place] [id number] [facility] Address: [facility] [address] [place] [address] Care Teams Hull Molder Relationship Specialty Start Date End Date Marv Becerril DO PCP - General 08/24/20 Referral, Self 02/01/23 Patricio Ayers MD [address] [facility] [address] DIV [place] [address] Consulting Physician Internal Medicine 02/01/23
--- OUTSIDE RECORDS SUMMARY | 2024-08-24 08:09 | XMS_ITS | Clinical Summary ---
Author Organization [facility] Address [address] [place] [address] Care Team Providers Care Railway Station Manager Name Role Phone Marv Becerril Primary Care Provider [phone] Referral, Self Unavailable Unavailable Patricio Ayers MD Unavailable [phone] Allergies Active Allergy Reactions Criticality Noted Date [...] SARS-CoV-2 Monovalent Vaccination (12+ Y RS) 04/26/2020,03/29/2020 Surgical History Surgery Date Site/Laterality Comments DEBRIDEMENT TENNIS ELBOW SECTION 03/18/1996 - 03/17/1997 ABLATION SECTION 03/18/1999 - 03/17/2000 Medical History Medical History Date Comments Hx Other Medical Left lateral ep icondylar release. 16; Comments: SHANTEL 10/10/2015 - Arthritis Anxiety Depression Hyperlipidemia Family History Medical History Relation Name Comments Hyperlipidemia Father Breast cancer Mother Other Other Family history of cancer and hypertension.; Breast cancer Sister 1 Breast cancer Sister 2 Relation Name Status Comments Father Mother Other Sister 1 Sister 2 Social History Tobacco Use Types Packs/Day Years Used Date Smoking Tobacco: Never Smokeless Tobacco: Never Tobacco Cessation:Counseling Given: Not Answered Comments No Sex and Gender Information Value Date Recorded Sex Assigned at Not on file Legal Sex Female 3:49 AM BOILERMAKER ASSEMBLY AND ERECTION Gender Identity Not on file Sexual Orientation Not on file Obstetrics History Last Filed Vital Signs Vital Sign Reading Time Taken Comments Blood Pressure 120/84 03/06/2024 8:16 AM BOILERMAKER ASSEMBLY AND ERECTION Pulse 79 03/06/2024 8:16 AM BOILERMAKER ASSEMBLY AND ERECTION Temperature 37.1 C (98.7 F) 03/06/2024 8:16 AM BOILERMAKER ASSEMBLY AND ERECTION Respiratory Rate 18 03/06/2024 8:16 AM BOILERMAKER ASSEMBLY AND ERECTION Oxygen Saturation 99% 03/06/2024 8:16 AM BOILERMAKER ASSEMBLY AND ERECTION Inhaled Oxygen Concentration - - Weight 78.9 kg (174 lb) 03/09/2024 8:29 AM BOILERMAKER ASSEMBLY AND ERECTION Height 157.5 cm (5' 2) 03/09/2024 8:29 AM BOILERMAKER ASSEMBLY AND ERECTION Body Mass Index 31.83 03/09/2024 8:29 AM BOILERMAKER ASSEMBLY AND ERECTION Plan of Treatment Health Maintenance Due Date Last Done Comments Cervical Cancer Screening 1970 Colon Cancer Screening-Colonoscopy 1970 Depression Screening 1970 Hepatitis C Screening 1970 DTaP/Tdap/Td Vaccine (1 - Tdap) 1981 Hepatitis B Screening 1988 Regular Well Visit/Exam 18-64 1988 Zoster Vaccine (1 of 2) 2020 Covid-19 Vaccine (3 - season) 2023 04/26/2020, 03/29/2020 Influenza Vaccine (Season Ended) 2024 12/15/2014 Breast Cancer Screening-Mammogram 03/09/2025 03/09/2024, 03/06/2023, 03/01/2022, Additional history exists Pneumococcal vaccine <65 Aged Out No longer eligible based on patient's age to complete this topic Procedures Procedure Name Priority Date/Time Associated Diagnosis Comments SCREENING MAMMOGRAM BILATERAL W KD Schedule Routine, Read Routine (OP Routine) 03/09/2024 9:08 AM BOILERMAKER ASSEMBLY AND ERECTION Breast cancer screening, high risk patient from Last 3 Months or Most Recently Relevant to Health Maintenance Results * Screening Mammogram Bilateral W Kd (03/09/2024 9:08 AM BOILERMAKER ASSEMBLY AND ERECTION) Anatomical Region Laterality Modality Breast Bilateral Mammography Narrative 03/09/2024 6:00 PM BOILERMAKER ASSEMBLY AND ERECTION Mammogram Technique: Bilateral Digital Breast Tomosynthesis, Bilateral C-view 2D Screening mammogram. Views obtained: bilateral craniocaudal and bilateral mediolateral oblique. Computer Aided Detection was performed. Mammogram Findings: The present examination has been compared to prior imaging studies performed at [facility] on 03/01/2022 and 03/06/2023. The breasts are [...] compared to prior imaging studies performed at [facility] on 03/01/2022 and 03/06/2023. The breasts are almost entirely fatty. There is no suspicious abnormality in either breast. There are no significant changes from the prior study. Impression: There is no mammographic evidence of malignancy. Annual screening mammography is recommended. OVERALL FINAL ASSESSMENT: BI-RADS CATEGORY 1: Negative. Bianca Rossi DATABASE MARKETING SPECIALIST IMG MAMMO PROCEDURES Final Result from Last 3 Months or Most Recently Relevant to Health Maintenance Insurance [facility]ICE [employer] H[facility]/PPO Address: [facility] [address] [place] [address] [address] [id number] [facility] CHOICE PLUS [facility]/PPO Address: [id number] [place] [address] [facility] H[facility]/PPO Address: [place] [address] Care Teams Railway Station Manager Relationship Specialty Start Date End Date Marv Becerril DO PCP - General 08/24/20 Referral, Self 02/01/23 Patricio Ayers MD [address] [facility] [address] DIV [place] [address] Consulting Physician Internal Medicine 02/01/23
--- OUTSIDE RECORDS SUMMARY | 2024-08-24 08:09 | XMS_ITS | Clinical Summary ---
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 Active busPIRone (BUSPAR) 10 MG Tablet 01/26/2024 Active tiZANidine (ZANAFLEX) 2 MG Capsule Take 2 mg by mouth. Active rosuvastatin (CRESTOR) 20 MG Tablet Take 20 mg by mouth daily. Active diclofenac (VOLTAREN) 75 MG Tablet Delayed Response Take 75 mg by mouth. Active omeprazole (PriLOSEC) 20 MG CAPSULE DELAYED RELEASE 12/16/2023 Active hydrOXYzine (ATARAX) 25 MG Tablet 12/05/2023 Active ALPRAZolam (XANAX) 0.25 MG Tablet Take 0.25 mg by mouth. Active Active Problems No known active problems Immunizations Immunization Administration Dates Next Due Influenza Vaccine, Quadrivalent, PF 12/15/2014 Zoster Vaccine Recombinant 10/16/2023,04/02/2023 Social History Tobacco Use Types Packs/Day Years Used Date Smoking Tobacco: Never Smokeless Tobacco: Never Comments No Sex and Gender Information Value Date Recorded Sex Assigned at Not on file Legal Sex Female 3:03 AM PRODUCTION SORTER Gender Identity Not on file Sexual Orientation Not on file Last Filed Vital Signs Vital Sign Reading Time Taken Comments Blood Pressure 118/74 03/26/2024 8:45 AM PRODUCTION SORTER Pulse 88 02/20/2024 8:56 AM PRODUCTION SORTER Temperature 36.1 C (96.9 F) 02/20/2024 8:56 AM PRODUCTION SORTER Respiratory Rate 16 03/26/2024 8:45 AM PRODUCTION SORTER Oxygen Saturation 98% 02/20/2024 8:56 AM PRODUCTION SORTER Inhaled Oxygen Concentration - - Weight 80.8 kg (178 lb 3.2 oz) 03/26/2024 8:45 A M PRODUCTION SORTER Height 157.5 cm (5' 2) 02/20/2024 8:56 AM PRODUCTION SORTER Body Mass Index 32.59 02/20/2024 8:56 AM PRODUCTION SORTER Plan of Treatment Health Maintenance Due Date Last Done Comments Hepatitis C Virus (HCV) Screening 1970 TdaP Immunization 1970 Hepatitis B Immunization (1 of 3 - 19+ 3-dose series) 1989 Pap Smear 06/19/1991 Cervical Cancer Screening (CCS) 2000 HPV/Cotest 2000 Cologuard 06/19/2015 Colonoscopy 06/19/2015 Colorectal Cancer Screening 06/19/2015 Immunochemical Fecal Occult Blood 06/19/2015 Pneumococcal Immunization (50+ years) (1 of 1 - PCV) 2020 SARS-COV-2 Immunization ( - season) 2023 03/25/2021, 04/26/2020, 03/29/2020 Influenza Immunization (Season Ended) 2024 12/15/2014 Mammogram 03/09/2025 03/09/2024, 08/16, 03/06/2023, Additional history exists Respiratory Syncytial Virus (RSV) Immunization (Adult) (1 - 1-dose 75+ series) 2045 Zoster Immunization Completed 10/16/2023, Human Papillomavirus (HPV) Immunization Aged Out No longer eligible based on patient's age to complete this topic Meningococcal Immunization (ACWY) Aged Out No longer eligible based on patient's age to complete this topic Rotavirus Immunization Aged Out No lo nger eligible based on patient's age to complete this topic Insurance [facility] Care Teams Chemical Treatment Plant Technician Relationship Specialty Start Date End Date Crispin Coppola MD [address] [place] [address] PCP - General 03/20/07 Maico Li PAC [address] [place] [address] Physician Beauty Specialist Physician Beauty Specialist 02/04/24
--- OUTSIDE RECORDS SUMMARY | 2024-08-24 08:09 | XMS_ITS | Clinical Summary ---
Author Organization [facility] Address [address] [place] [address] Care Team Providers Care Skills Trainer Name Role Phone Maico Prajapati MD Primary Care Provider [phone] Allergies Active Allergy Reactions Criticality Noted Date Comments Moxifloxacin Other (See Comments) 01/16/2023 Penicillins Rash Low 01/16/2023 Sulfa (Sulfonamide Antibiotics) Rash Low 03/2022 Medications ALPRAZolam (XANAX) 0.25 mg tablet Take 0.25 mg by mouth. Active buPROPion HCL (WELLBUTRIN XL) 150 mg Extended Release 24 hour tablet Take 150 mg by mouth daily. Active diclofenac sodium (VOLTAREN) 75 mg Tablet, Delayed Release (E.C.) Take 75 mg by mouth 2 times daily. Active DOCOSAHEXAENOIC ACID ORAL Take by mouth. Active rosuvastatin (CRESTOR) 20 mg tablet Take 20 mg by mouth daily. Active tiZANidine (ZANAFLEX) 2 mg Capsule Take 2 mg by mouth. Active busPIRone (BUSPAR) 5 mg tablet Take 5 mg by mouth 3 times daily. Active ergocalciferol, vitamin D2, (VITAMIN D ORAL) Take by mouth. Active Active Problems No known active problems Family History Medical History Relation Name Comments Breast Cancer Brother Heart Disease Father Breast Cancer Mother Breast Cancer Sister 1 Relation Name Status Comments Brother Alive Daughter Alive Father Mother Sister 1 Alive Sister 2 Alive Sister 3 Alive Sister 4 Alive Son Alive Social History Tobacco Use Types Packs/Day Years Used Date Smoking Tobacco: Never Smokeless Tobacco: Never Tobacco Cessation:Counseling Given: Not Answered Alcohol Use Standard Drinks/Week Comments Yes 0 (1 standard drink = 0.6 oz pur e alcohol) Comments Unknown Sex and Gender Information Value Date Recorded Sex Assigned at Not on file Legal Sex Female 3:16 PM CDT Gender Identity Not on file Sexual Orientation Not on file Last Filed Vital Signs Vital Sign Reading Time Taken Comments Blood Pressure 148/93 01/29/2023 1:49 PM SAWMILLING OPERATOR Pulse 81 01/29/2023 1:46 PM SAWMILLING OPERATOR Temperature 35.9 C (96.7 F) 01/29/2023 1:46 PM SAWMILLING OPERATOR Respiratory Rate 10 01/29/2023 1:46 PM SAWMILLING OPERATOR Oxygen Saturation 100% 01/29/2023 1:46 PM SAWMILLING OPERATOR Inhaled Oxygen Concentration - - Weight 95.3 kg (210 lb) 01/29/2023 1:46 PM SAWMILLING OPERATOR Height 157.5 cm (5' 2) 01/16/2023 2:52 PM CDT Body Mass Index 38.41 01/16/2023 2:52 PM CDT Plan of Treatment Health Maintenance Due Date Last Done Comments DTAP/TDAP/TD VACCINES (1 - Tdap) 1989 HEPATITIS B VACCINES (1 of 3 - 19+ 3-dose series) 1989 HPV/Cotest (21-29) 06/19/1991 CERVICAL CANCER SCREENING 2000 HPV/Cotest (30-65) 2000 PAP SMEAR 2000 COLORECTAL SCREENING 06/19/2015 Colorectal Cancer Screening 06/19/2015 FIT-DNA Q 3 years 06/19/2015 FIT/FOBT Q 1 year 06/19/2015 Flex Sig/CT Colonography Q 5 years 06/19/2015 ZOSTER VACCINE (1 of 2) 2020 BREAST CANCER SCREENING 03/01/2023 03/01/2022 INFLUENZA VACCINE (#1) 2023 12/15/2014 COVID-19 Vaccine ( season) 11/17/202311/2020, 03/29/[address] [place] [address] [employer] [id number] Care Teams Skills Trainer Relationship Specialty Start Date End Date Maico Prajapati MD [address] [place] [id number] PCP - General Family Practice 01/16/23
[2024-08-24 08:12] VITALS: BP 144/82; PULSE 67; RESP 20; TEMP 36.6; O2SAT 100
--- NOTE | 2024-08-24 08:13 | ED.EAR ---
HPI - Ear Problem General Chief complaint: Ear Stated complaint: Right Ear Irritation Time Seen by Provider: 08/24/24 08:20 Source: patient and RN notes reviewed Mode of arrival: ambulatory Limitations: no limitations History of Present Illness HPI Narrative: 54-year-old female presents concern for your wax in her right ear. Reports her provider told her she had ear wax buildup a few weeks ago and she has been using ear wax drops without success. Reports today in the shower her hearing felt muscle. She denies pain or drainage. MD Complaint: decreased hearing Related Data Home Medications ?Medication ?Instructions ?Recorded ?Confirmed ?Last Taken ?Type multivitamin 1 tablet PO DAILY 12/15/20 05/13/24 12/24/20 History omega 3-tvu-tlh-fish oil 1,000 mg 1 cap PO DAILY 12/15/20 05/13/24 12/24/20 History (120 mg-180 mg) capsule (Fish Oil) bupropion HCl 300 mg 24 hr tablet, 300 mg PO QAM 04/02/23 05/13/24 Unknown History extended release (Wellbutrin XL) buspirone 5 mg tablet 5 mg PO BID 04/02/23 05/13/24 Unknown History hydroxyzine HCl 25 mg tablet 12.5 mg PO QHS PRN 07/09/23 05/13/24 Unknown History turmeric 400 mg capsule mg PO 10/01/23 05/13/24 Unknown History Allergies Allergy/AdvReac Type Severity Reaction Status Date / Time Quinolones Allergy Severe RASH Verified 05/13/24 07:14 Sulfa (Sulfonamide Allergy Severe RASH Verified 05/13/24 07:14 Antibiotics) REACTION moxifloxacin Allergy Unknown Rash Verified 05/13/24 07:14 Penicillins Allergy Unknown RASH Verified 05/13/24 07:14 penicillin V Allergy Unknown Verified 05/13/24 07:14 clarithromycin AdvReac Mild Dizziness Verified 05/13/24 07:14 rofecoxib AdvReac Unknown Hives Verified 05/13/24 07:14 Review of Systems Review of Systems: CONSTITUTIONAL: Denies malaise, chills, sweats, or fever. EYES: Denies visual changes, redness, or discharge. ENT: Denies rhinorrhea, congestion, sinus pain, and sore throat. Reports right ear fullness CARDIOVASCULAR: Denies chest pain, palpitations, or edema. RESPIRATORY: Denies cough. Denies dyspnea. GASTROINTESTINAL: Denies abdominal pain, nausea, vomiting, diarrhea SKIN: Denies rash or itching. MUSCULOSKELETAL: Denies myalgia. NEUROLOGIC: Denies headache. All systems reviewed & are unremarkable except as noted in HPI and below PMFSH Past Medical History Medical History (Updated 08/24/24 @ 08:29 by Anabel Cook NP) BMI 29.0-29.9,adult Atypical anorexia nervosa Multilevel scoliosis Major depressive disorder Positive colorectal cancer screening using Cologuard test Screening for osteoporosis Screening for breast cancer Postmenopausal Fatty liver Hydradenitis Osteoarthritis Restless legs syndrome Mixed hyperlipidemia Mild intermittent reactive airway disease Anxiety Family History Family History Father Hypertension Cerebrovascular accident Acute myocardial infarction Mother Family history of malignant neoplasm of breast in first degree relative Social History Social History Smoking status: Never smoker Second hand tobacco smoke exposure: No Alcohol intake: current Drinks per week: 2 Substance use: current Substance use type: marijuana Other substance usage details: Cannabis gummies occasionally Do You Feel Safe in your Home?: Yes Lack of Transportation: No Lack of Food: Never True Current Housing: I Have Housing Concerned About Future Housing: No Difficulty Paying Gas/Electric Bills: No Difficulty Paying for Meds: No Currently Unemployed: No Education: Associate Degree Difficulty w/ Childcare or Family Care: No Living arrangements: with family Spiritual care concerns: No Comments At time of signature, agree with nursing past medical, surgical, social and family history. There is no relevant family history pertinent to the presenting complaint Exam Narrative: GENERAL: Well-appearing, well-nourished, and in no acute distress. HEAD: Normocephalic EYES: PERRLA, conjunctivae clear ENT: Nares clear. Mucous membranes moist. TM pearly chaney with dull light reflex bilaterally; no tragal tenderness, ear wax buildup in the right ear canal. NECK: Supple. No lymphadenopathy CHEST: No respiratory distress, speaks in full sentences. HEART: Regular rate and rhythm. No murmur heard. SKIN: Warm, dry, no rash. NEURO: Alert and oriented x3. PSYCH: Normal mood and affect Course Course Emergency Course: Patient is aware of diagnosis, understands and agrees to treatment plan. Anticipatory guidance given. Patient agrees to follow-up as directed and is aware of reasons to seek care at the emergency department. Portions of this record may have been created with voice recognition software Level of Care: [facility] Visit Vital Signs Vital signs: Reviewed. Procedures Ear Wax Removal Right Ear: Ear Wax Removal Date: 08/24/24 Ear Wax Removal Time: 08:22 Results: Re-examined: cerumen removed completely TM Examination: TM(s) intact, normal appearance Patient Tolerated Procedure: well Complications: no problems Technique: ear canal curetted Medical Decision Making MDM Narrative Medical decision making narrative: I evaluated this in the [facility]. History is obtained from patient who is an independent historian and physical exam was performed.? Available medical records were reviewed. ? Exam findings and relevant testing show no acute concerns or changes; patient is non-toxic appearing and is in no distress. Differential diagnosis considered: Guerra virus, strep pharyngitis, allergic rhinitis, upper respiratory tract infection, sinusitis, rhinosinusitis, nasopharyngitis. viral pharyngitis, otitis media, otitis externa, otitis effusion, cerumen impaction, foreign body. Exam findings show no acute concerns or changes; patient is non-toxic appearing and is in no distress. Patient is appropriate for outpatient treatment and follow-up. ? Differential diagnosis and treatment plan were discussed with the patient. Patient agrees with discussion and after shared medical decision making agrees with plan of care. All questions were answered to the patient's satisfaction. Patient is appropriate for outpatient treatment and follow-up. Critical Care Time Critical Care Time Critical Care Time: No Discharge Plan Discharge Clinical Impression: Cerumen impaction Patient Disposition: Home Condition: Stable Instructions: General Patient Instructions Additional Instructions: Ear wax impaction is when ear wax builds up enough to cause symptoms. Normally, ear wax helps to protect the insides of the ears and prevents injury or infection. But having too much ear wax can cause symptoms such as pain and trouble hearing. The medical term for ear wax is cerumen. The insides of the ears do not usually need to be cleaned. Sticking anything into the ears can push the wax in deeper and cause impaction. How is ear wax impaction treated? There are several treatments to remove impacted ear wax. Treatment is usually only needed if the impaction is causing bothersome symptoms. Treatment is not recommended for removing ear wax in people who have no symptoms, even if their ears are impacted. There are several different ways to remove ear wax: ?Ear drops - Special ear drops can soften ear wax and help it to drain out. Ear drops are not usually safe for people with an ear infection or damage to the eardrum. ?Rinsing - In some cases, a doctor or nurse can remove impacted ear wax by squirting water (or a special liquid) into the ear to rinse it out. ?Special tools - A doctor or nurse might use a special tool to remove ear wax. There are different types of tools that can do this safely. These include small sticks, hooks, and spoons. There are also tools that use suction to pull the wax out. If you have recurrent cerumen impaction and no significant ear disease, you can use hydrogen peroxide to soften the wax so it comes out on its own. Do not put any tools on q-tips into your ears. Please use any drops that may have been prescribed to you. Follow up with your doctor if you have any new symptoms or concerns. Patient Language: Jamaican Prescriptions: No Action hydroxyzine HCl 25 mg tablet 12.5 mg PO QHS PRN buspirone 5 mg tablet 5 mg PO BID bupropion HCl [Wellbutrin XL] 300 mg tablet extended release 24 hr 300 mg PO QAM diclofenac sodium 75 mg tablet,delayed release (DR/EC) 75 mg PO DAILY Qty: 90 1RF Rx Instructions: Take with a meal rosuvastatin 20 mg tablet See Rx Instructions .ROUTE .COMPLEX Qty: 90 3RF Dose Instruction: TAKE 1 TABLET DAILY Rx Instructions: TAKE 1 TABLET DAILY rosuvastatin 20 mg tablet 20 mg PO DAILY Qty: 14 0RF tizanidine 4 mg capsule 4 mg PO QHS PRN (Reason: muscle spasticity) Qty: 90 1RF turmeric 400 mg capsule PO multivitamin Tablet 1 tablet PO DAILY omega 3-bqt-otr-fish oil [Fish Oil] 1,000 mg (120 mg-180 mg) Capsule 1 cap PO DAILY alprazolam 0.25 mg tablet 0.25 mg PO DAILY PRN (Reason: anxiety) Qty: 20 0RF omeprazole 20 mg capsule,delayed release(DR/EC) 20 mg PO DAILY Qty: 90 1RF Follow-up/Referrals: Elmer,Cb E., VIDEO NEWS EDITOR [Primary Care Provider] - Time of Disposition: 08:28
== END 2024-08-24 08:34 | disposition home or self-care (01) ==
PROVIDERS: Emergency Provider Nurse Practitioner; PCP Nurse Practitioner
DX: H61.21 Impacted cerumen, right ear (principal); F12.90 Cannabis use, unspecified, uncomplicated; K76.0 Fatty (change of) liver, not elsewhere classified; G25.81 Restless legs syndrome; E78.2 Mixed hyperlipidemia; M19.90 Unspecified osteoarthritis, unspecified site; F41.9 Anxiety disorder, unspecified; F32.9 Major depressive disorder, single episode, unspecified
CPT/HCPCS: 69210; 99212; G0463